=== PATIENT | female | born 1975 | race Caucasian/White ===

== ENCOUNTER 2017-08-23 07:05 | Emergency (ER) | payer MEDICAID ==
[~2017-08-23] VITALS: Ht 177.8 cm; Wt 111.0 kg
[~2017-08-23 07:05] MED LIST: CYCL5TAB PO; IBUP800T23 PO
[2017-08-23 07:12] VITALS: BP 157/71; PULSE 118; RESP 16; TEMP 101.2; O2SAT 95
[2017-08-23 07:22] VITALS: BP 129/76; PULSE 99; RESP 18; TEMP 99.8; O2SAT 97
[2017-08-23 07:29] LABS: BLOOD, URINE NEG (NEG); GLUCOSE,URINE NEG (NEG); KETONE, URINE NEG (NEG); NITRITE,URINE NEG (NEG); PH, URINE 5.5 (5.0-8.5)
--- NOTE | 2017-08-23 07:32 | PD ---
HPI Chief Complaint: ENT Complaint Time Seen by Provider: 07:26 Travel History International Travel<30 days: No Contact w/Intl Traveler<30days: No Traveled to known affect area: No History of Present Illness HPI This patient complains sore throat. Duration 2 days. She has pain when swallowing. Has had fever as well. No runny nose cough or congestion. Also reported she had been urinating very frequently over the last 24 hours. Symptoms severity is moderate PFSH Past Medical History Medical History: Denies Significant Hx Diminished Hearing: No Immunizations Current: No Influenza Vaccination: No ?: Not LMP: 2 WEEKS : 3 Para: 3 Tubal Ligation: Yes Past Surgical History Section: Yes Social History Alcohol Use: Yes (SOCIAL) Tobacco Use: No (QUIT 2014) Substance Use: No Allergies-Medications (Allergen,Severity, Reaction): Coded Allergies: No Known Allergies (Unverified , 08/23/17) Reported Meds & Prescriptions Reported Meds & Active Scripts Active Flexeril (Cyclobenzaprine HCl) 5 Mg Tab 5 Mg PO Q8HR PRN Ibuprofen 800 Mg Tab 800 Mg PO Q8 PRN Review of Systems General / Constitutional: Positive: Fever HENT: No: Headaches Cardiovascular: No: Chest Pain or Discomfort Respiratory: No: Cough Gastrointestinal: No: Vomiting Physical Exam Narrative GENERAL: Well-nourished, well-developed patient. SKIN: Focused skin assessment warm/dry. HEAD: Normocephalic. EYES: No scleral icterus. No injection or drainage. NECK: Supple, trachea midline. No JVD or lymphadenopathy. No meningeal signs CARDIOVASCULAR: Regular rate and rhythm without murmurs, gallops, or rubs. RESPIRATORY: Breath sounds equal bilaterally. No accessory muscle use. GASTROINTESTINAL: Abdomen soft, non-tender, nondistended. MUSCULOSKELETAL: No cyanosis, or edema. BACK: Nontender without obvious deformity. No CVA tenderness. Throat: Has exudate on both tonsils with uvula midline Data Data Last Documented VS Vital Signs Date Time Temp Pulse Resp B/P (MAP) Pulse Ox O2 Delivery O2 Flow Rate FiO2 08/23/17 07:22 99.8 99 18 129/76 (93) 97 Room Air Orders Orders Urinalysis - C+S If Indicated (08/23/17 07:16) Labs Laboratory Tests Test 08/23/17 07:20 Urine Collection Type VOIDED Urine Color STRAW Urine Turbidity HAZY Urine pH 5.5 Urine Specific Christopher 1.020 Urine Protein TRACE mg/dL Urine Glucose (UA) NEG mg/dL Urine Ketones NEG mg/dL Urine Occult Blood NEG Urine Nitrite NEG Urine Bilirubin NEG Urine Leukocyte Esterase SMALL Urine WBC 0-2 /hpf Urine Squamous Epithelial Cells >8 /hpf Urine Bacteria FEW /hpf Microscopic Urinalysis Comment CULT NOT INDICATED MDM Medical Decision Making Medical Screen Exam Complete: Yes Emergency Medical Condition: Yes Medical Record Reviewed: Yes Differential Diagnosis Strep pharyngitis, URI, bronchitis, UTI Narrative Course I have reviewed the patient's electronic medical record. Presentation is consistent with a strep pharyngitis. She lacks any viral symptoms. 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 Urinalysis is normal Penicillin VK prescribed Diagnosis Primary Impression: Pharyngitis, acute Qualified Codes: J02.8 - Acute pharyngitis due to other specified organisms Additional Instructions: The patient was advised to follow up with their physician and return if they worsen. Med/Other Pt SpecificInfo: Prescription(s) given Scripts Penicillin V Potassium (Penicillin V Potassium) 500 Mg Tab 500 MG PO Q6H for Infection for 7 Days, #28 TAB 0 Refills Prov: Dimitri Garnett MD 08/23/17 Disposition: 01 DISCHARGE HOME Condition: Stable Dimitri Garnett MD Aug 23, 2017 07:32
[2017-08-23 07:35] LABS: METHOD OF COLLECTION VOIDED; URINE COLOR STRAW (YELLW/STRAW)
[2017-08-23 07:36] LABS: BACTERIA, URINE FEW /hpf; COMMENT (UR) CULT NOT INDICATED; CULTURE IF INDICATED CULT NOT INDICATED; SQUAMOUS EPITHELIAL CELL URINE >8 /hpf (0-5); WBC, URINE 0-2 /hpf (0-5)
[2017-08-23] MEDS ORDERED: PENI500T PO (07:50)
== END 2017-08-23 08:00 | disposition home or self-care (01) ==
LOC: PHED 07:05
DX: J02.8 Acute pharyngitis due to other specified organisms (principal); Z87.891 Personal history of nicotine dependence
CPT/HCPCS: 81001; 99283